=== PATIENT | male | born 1955 | race Caucasian/White ===

== ENCOUNTER → 2016-05-25 | Outpatient (CLI) | payer BC ==
--- NOTE | ~2016-05-25 | US10 ---
[id number] [facility] [address]. [place], [place] [address] [id number] O MR#: [id number] Acc #: [id number] NAME: SARA KINSEY : 1955 SEX: M STUDY DATE/TIME: 05/25/2016 11:46 UNIT: [facility] ROOM: STUDY DESCRIPTION: US Aorta Complete Attending Physician: Nimco Og Referring Physician: Nimco Og Ordering Physician: Staff Doctor Not On Primary Care Physician: [facility] MEDICAL IMAGING REPORT This report is preliminary unless electronic signature is present EXAM Ultrasound of the abdominal aorta 05/25/2016 INDICATIONS 60-year-old male with a heart murmur. Abdominal bruit at primary care appointment 1 month ago. TECHNIQUE Diamond-scale color Doppler and spectral analysis of the abdominal aorta was performed. We have no comparisons. PLAN Segmentally visualized IVC unremarkable. The proximal aorta measures up to about 2.7 cm, the mid aorta up to about 2.6 cm and the distal aorta up to about 1.9 cm. Appropriate waveforms are present within the aorta. No evidence of aortic aneurysm. Visualized iliac arteries demonstrate no focal aneurysm. IMPRESSION 1. No abdominal aortic aneurysm Dictated by... Ortiz Coleman M.D. THIS IS AN ELECTRONICALLY VERIFIED REPORT Ortiz Coleman M.D. at 05/26/2016 10:37 AM CHANCE/walt TD: 05/26/2016 02:23 JOB #: [id number] MEDICAL IMAGING REPORT Page 1 of 1 COPY
--- NOTE | ~2016-05-25 | US37 ---
[facility] A Service of [facility] RADIOLOGY TEXT RESULTS PATIENT: SARA KINSEY LOCATION: [facility] : 55 UNIT #: [id number] AGE: [address]: AUGUSTO SEXTON SEX: M ORDER DR: [id number] [facility] [address] [place], [place] [address] [id number] O MR#: [id number] Acc #: [id number] NAME: SARA KINSEY : 1955 SEX: M STUDY DATE/TIME: 05/25/2016 12:04 UNIT: [facility] ROOM: STUDY DESCRIPTION: US Carotid W/Doppler Bilateral Attending Physician: Augusto Sexton Referring Physician: Augusto Sexton Ordering Physician: Staff Doctor Not On Primary Care Physician: [facility] MEDICAL IMAGING REPORT This report is preliminary unless electronic signature is present EXAM Carotid Doppler bilateral 05/25/2016 HISTORY Bilateral carotid bruits on physical examination 1 month ago. Benign essential hypertension. Evaluate for carotid stenosis. FINDINGS Diamond-scale carotid artery images were obtained as well as Doppler waveform spectral analysis and color flow Doppler imaging. The examination was interpreted according to NASCET criteria. There is no hemodynamically significant stenosis in either carotid artery. Peak systolic velocity in the right and left internal carotid arteries is 67 cm/sec and 57 cm/sec respectively. Antegrade blood flow is seen in both vertebral arteries. There is mild plaque bilaterally. IMPRESSION No hemodynamically significant stenosis in either carotid artery. Dictated by... Bryn Carranza M.D. THIS IS AN ELECTRONICALLY VERIFIED REPORT Bryn Carranza M.D. at 05/28/2016 12:18 PM GOPAL/walt TD: 05/25/2016 22:28 JOB #: [id number] MEDICAL IMAGING REPORT Page 1 of 1 COPY
== END | disposition home or self-care (01) ==
LOC: CGUS 11:04
DX: Z13.6 Encounter for screening for cardiovascular disorders (principal); R01.1 Cardiac murmur, unspecified
CPT/HCPCS: 76770; 93306; 93880